=== PATIENT | female | born 1935 | race African-American/Black ===

== ENCOUNTER 2017-01-24 17:18 | Inpatient (IN) ==
[2017-01-24] MEDS ORDERED: ASPIRIN PO STA (17:20)
[2017-01-24 17:53] LABS: MANUAL DIFF NEEDED? NO
[2017-01-24 18:00] LABS: BASO% 0.1 % (0.0-0.8); EOS# 0.02 X1000 (0.0-0.7); EOS% 0.2 % (0.0-10.0); HEMATOCRIT 34.5 % (37.0-47.0); HEMOGLOBIN 11.2 g/dL (12.0-16.0); IMM GRAN# 0.02 X1000 (0.0-0.04); IMM GRAN% 0.2 % (0.0-0.5); LYMPH# 1.56 X1000 (1.2-3.4); LYMPH% 15.2 % (20.5-51.1); MCHC 32.5 g/dL (33-37); MCV 95.6 FL (81-99); MONO# 0.83 X1000 (0.11-0.59); MONO% 8.1 % (1.7-9.3); MPV 10.5 FL (7.4-10.4); NEUT% 76.2 % (42.2-75.2); PLT 193 X1000 (130-400); RBC 3.61 XMIL (4.2-5.4)
[2017-01-24 18:11] LABS: INR 1.02 (0.86-1.15); PROTIME 14.2 Seconds (12.1-15.5)
[2017-01-24 18:20] LABS: ALBUMIN 3.8 g/dL (3.5-5.0); CALCIUM 9.3 mg/dL (8.8-10.2); MAGNESIUM 1.7 mg/dL (1.5-2.7); POTASSIUM 3.8 mmol/L (3.5-5.1); TOTAL BILIRUBIN 0.3 mg/dL (0.20-1.00); TOTAL PROTEIN 9.2 g/dL (6.3-8.3)
[2017-01-24 18:37] LABS: CK INDEX 2.1 (0.0-2.5); CK-MB 3.99 ng/mL (0.0-5.0)
[2017-01-24] MEDS ORDERED: NS 1,000 ML IV ONE ×2 (19:08→19:16)
[2017-01-24] MEDS ORDERED: LASIX IV ONE (21:13)
[2017-01-24] MEDS ORDERED: LOVENOX 1 MG/KG SUBQ ONE (21:19)
[2017-01-24] MEDS ORDERED: LOVENOX ONE (22:05)
[2017-01-24 23:46] LABS: INR 1.05 (0.86-1.15); PROTIME 14.5 Seconds (12.1-15.5)
[2017-01-25] MEDS ORDERED: ZOFRAN IV PRN (14:49)
[2017-01-25] MEDS ORDERED: TYLENOL PO PRN (14:49)
[2017-01-25] MEDS: LOVENOX SUBQ SCH (17:29)
[2017-01-26 05:59] LABS: HEMOGLOBIN 10.1 g/dL (12.0-16.0); MCH 31.5 PG (27-31); MCHC 32.6 g/dL (33-37); MCV 96.6 FL (81-99); MPV 10.4 FL (7.4-10.4); RBC 3.21 XMIL (4.2-5.4)
[2017-01-26 06:13] LABS: CALCIUM 8.7 mg/dL (8.8-10.2); POTASSIUM 3.5 mmol/L (3.5-5.1)
[2017-01-26 06:32] VITALS: BP 133/79
[2017-01-26] MEDS: LOVENOX SUBQ SCH (07:03)
[2017-01-26] MEDS ORDERED: FERROUS SULFATE PO SCH (09:00)
[2017-01-26] MEDS ORDERED: DYAZIDE PO SCH (09:00)
[2017-01-26] MEDS ORDERED: ZYLOPRIM PO SCH (09:00)
[2017-01-26] MEDS ORDERED: VOLTAREN 1% GEL TOP SCH (13:00)
== END 2017-01-26 14:26 | disposition home or self-care (01) ==
LOC: P.ED 17:18 → P.MEDSURG 22:11
PROVIDERS: ATTEND Family Medicine